=== PATIENT | female | born 1965 | race Caucasian/White ===

== ENCOUNTER → 2018-08-21 | Day surgery (SDC) | payer BC ==
[~2018-08-21] MED LIST: ALEVE; CELEXA10 MG; DIAZEPAM5 MG PO; EPHEDRINE SULFATE INJ 50 MG/10 ML SYR ONE; FENTANYL CITRATE/PF 100MCG/2 ML INJ ONE; HYOSCYAMINE 0.125 MG TAB ONE; LAMICTAL5 MG; LIDOCAINE HCL 2% LOCAL INJ 5 ML SDV VIAL INJ ONE; LOMOTRIGINE PO; MELOXICAM7.5 MG PO; MIDAZOLAM HCL 2 MG/2 ML VIAL ONE; PAXIL20 MG PO; PROPOFOL IV EMULSION 10 MG/ML 50 ML VIAL ONE; SEROQUEL25 MG PO; TRAZODONE HCL50 MG PO; Z.1.ALPRAZOLAM0.25 M PO; ZOLOFT50 MG
--- OUTSIDE RECORDS SUMMARY | 2018-08-21 09:09 | XMS REPORT ---
Author Author [facility] Address Unknown Phone Unavailable Care Team Providers Care Senior Technical Analyst Name Role Phone Unavailable Unavailable Payers Payer Name Policy Type Policy Number Effective Date Expiration Date Problems This patient has no known problems. Allergies, Adverse Reactions, Alerts Allergy Name Allergy Type Status Severity Reaction(s) Onset Date Inactive Date Treating Clinician Comments latex DA Active MO 2018-05-22 00:00:00 pecan nut DA Active SV 2018-05-22 00:00:00 NUTS DA Active SV 2018-05-22 00:00:00 Penicillins DA Active MO 2018-05-21 00:00:00 magnesium sulfate DA Active SV 2018-05-21 00:00:00 codeine DA Active MO 2018-05-21 00:00:00 latex DA Active U 2018-05-21 00:00:00 latex DA Active U 2016-12-05 00:00:00 NUTS DA Active U 2015-08-03 00:00:00 codeine DA Active MO 2015-08-02 00:00:00 Penicillins DA Active MO 2015-03-19 00:00:00 magnesium sulfate DA Active SV 2015-03-19 00:00:00 Medications This patient has no known medications. Results Test Description Test Time Test Comments Text Results Atomic Results Result Comments DIAG MAMM BILATERAL EFREN CAD DIGITAL 2018-01-22 14:50:29 - DIAG MAMM BILATERAL EFREN CAD DIGITALBILATERAL DIGITAL DIAGNOSTIC MAMMOGRAM 3D/2D WITH CAD: 01/22/2018CLINICAL: Followup to previous exam. Digital breast tomosynthesis was performed in addition to routine CC and MLO views. Current mammographic images were evaluated by either a [employer] M-Vu or a [employer] ImageChecker CAD (computer aided detection system). Comparison is made to exams dated 01/20/2017 mammogram, 04/02/2016 mammogram, 06/27/2015 mammogram, and [facility] The tissue of both breasts is heterogeneously dense. This may lower the sensitivity of mammography. No suspicious mass, architectural distortion, malignant type calcification, or lymph node abnormality detected. INCOMPLETE ASSESSMENT: ADDITIONAL IMAGING EVALUATION RECOMMENDEDUltrasound pending for additional evaluation. Resume annual screening mammography in one year. - BREAST ULTRASOUND BILATERALULTRASOUND OF BOTH BREASTS AND BOTH AXILLA: 01/22/2018Comparison is made to exams dated 01/20 mammogram, 04/02/2016 mammogram, 06/27/2015 mammogram, and [facility] Real-time ultrasound of both breasts and both axilla was performed. No abnormalities were seen sonographically in either axilla. Benign solid and cystic masses were seen. No evidence of malignancy was seen. Unchanged from the previous studies. Clinical breast exam was unremarkable.IMPRESSION: BENIGN There is no sonographic evidence of malignancy. Patient has been informed that she has areas of dense breast tissue that could make it difficult to find a small cancer. A screening mammogram and supplemental ultrasound for dense breast tissue is recommended in 1 year.Do Genao M.D. dm/:01/22/2018 14:50:29 Lye Boiler: Lopez Ocampo , [facility] BIRADS 1-2 Combo FU Letter Mammogram BI-RADS: 0 Indeterminate Ultrasound BI-RADS: 2 Benign BREAST ULTRASOUND BILATERAL 2018-01-22 14:50:29 - DIAG MAMM BILATERAL EFREN CAD DIGITALBILATERAL DIGITAL DIAGNOSTIC MAMMOGRAM 3D/2D WITH CAD: 01/22/2018CLINICAL: Followup to previous exam. Digital breast tomosynthesis was performed in addition to routine CC and MLO views. Current mammographic images were evaluated by either a [employer] M-Vu or a [employer] ImageChecker CAD (computer aided detection system). Comparison is made to exams dated 01/20/2017 mammogram, 04/02/2016 mammogram, 06/27/2015 mammogram, and 06/22/2014 [facility]. The tissue of both breasts is heterogeneously dense. This may lower the sensitivity of mammography. No suspicious mass, architectural distortion, malignant type calcification, or lymph node abnormality detected. INCOMPLETE ASSESSMENT: ADDITIONAL IMAGING EVALUATION RECOMMENDEDUltrasound pending for additional evaluation. Resume annual screening mammography in one year. - BREAST ULTRASOUND BILATERALULTRASOUND OF BOTH BREASTS AND BOTH AXILLA: 01/22/2018Comparison is made to exams dated 01/20 mammogram, 04/02/2016 mammogram, 06/27/2015 mammogram, and 06/22/2014 [facility]ogram - [facility]. Real-time ultrasound of both breasts and both axilla was performed. No abnormalities were seen sonographically in either axilla. Benign solid and cystic masses were seen. No evidence of malignancy was seen. Unchanged from the previous studies. Clinical breast exam was unremarkable.IMPRESSION: BENIGN There is no sonographic evidence of malignancy. Patient has been informed that she has areas of dense breast tissue that could make it difficult to find a small cancer. A screening mammogram and supplemental ultrasound for dense breast tissue is recommended in 1 year.Do Genao M.D. dm/:01/22/2018 14:50:29 Lye Boiler: Lopez CHAVEZ, [facility] BIRADS 1-2 Combo FU Letter Mammogram BI-RADS: 0 Indeterminate Ultrasound BI-RADS: 2 Benign
[2018-08-21 14:05] VITALS: BP 109/72
--- NOTE | 2018-08-21 20:25 | Operative Report ---
DATE OF PROCEDURE: 08/21/2018 SURGEON: Roberto King MD PROCEDURES: Colonoscopy with polypectomy and biopsies. INDICATIONS FOR COLONOSCOPY: Colorectal cancer screening. MEDICATIONS: The patient was done under MAC, please see anesthesiologist's note. DESCRIPTION OF PROCEDURE: With the patient in left lateral decubitus position, a flexible fiberoptic Olympus colonoscope was inserted into the rectum with ease and advanced all the way to the cecum. It was then withdrawn slowly; mucosa overlying the cecum, ascending colon, transverse colon appeared to be within normal limits. There was some mild patchy inflammatory changes noted in the distal descending and the sigmoid colon and random biopsies were obtained. Two minute polyps were hot biopsied from the sigmoid colon. The rectum grossly appeared to be within normal limits. The scope was then retroflexed into the distal rectum and small internal hemorrhoids were noted, none of which was actively bleeding. The scope was then straightened out, it was subsequently withdrawn, and the patient tolerated the procedure well. IMPRESSION: 1. Mild segmental colitis, left colon. 2. Sigmoid colon polyps x2 hot biopsied. 3. Internal hemorrhoids, none actively bleeding. PLAN: Follow up histology. Initiate high-fiber, low-fat diet. Initiate high-fiber supplement. The patient might benefit from a followup colonoscopy in 5 years. Severe with the by Dr. Mejia at the at send copy this report to my office as well as the doctor dated with Lee ricky thank you. Roberto King MD [facility]/[place] /[id number] cc: Lewis Gaviria
== END | disposition home or self-care (01) ==
LOC: OR 09:02
PROVIDERS: ATTEND Internal Medicine Gastroenterology
DX: Z12.11 Encounter for screening for malignant neoplasm of colon (principal); K63.5 Polyp of colon; K64.8 Other hemorrhoids; Z88.0 Allergy status to penicillin; Z88.8 Allergy status to other drugs, medicaments and biological substances; Z91.040 Latex allergy status; Z01.810 Encounter for preprocedural cardiovascular examination; Z87.891 Personal history of nicotine dependence
CPT/HCPCS: 45380; 45384; 93005; J2001; J2250; J2704; 45378; J3010

== ENCOUNTER 2018-11-22 02:42 | Observation (INO) | payer BC ==
[~2018-11-22] VITALS: Ht 167.6 cm; Wt 73.9 kg
[~2018-11-22 02:42] MED LIST changes: -EPHEDRINE SULFATE INJ 50 MG/10 ML SYR ONE; -FENTANYL CITRATE/PF 100MCG/2 ML INJ ONE; -HYOSCYAMINE 0.125 MG TAB ONE; -LIDOCAINE HCL 2% LOCAL INJ 5 ML SDV VIAL INJ ONE; -MIDAZOLAM HCL 2 MG/2 ML VIAL ONE; -PROPOFOL IV EMULSION 10 MG/ML 50 ML VIAL ONE
[2018-11-22] MEDS ORDERED: FAMOTIDINE 20 MG/2 ML VIAL IV STA (03:17)
[2018-11-22] MEDS ORDERED: ONDANSETRON HCL INJ 2MG/ML 2ML 2 MG/ML VIAL IV STA (03:17)
[2018-11-22] MEDS ORDERED: SODIUM CHLORIDE 0.9% 1000ML 1,000 ML IV STA (04:06)
[2018-11-22 04:11] LABS: BASOPHILS # (AUTO) 0.1 (0.0-0.1); BASOPHILS % 0.9 % (0.0-1.0); EOSINOPHILS # (AUTO) 0.3 (0.0-0.4); EOSINOPHILS % 4.3 % (0.0-6.0); HEMATOCRIT 40.3 % (34.2-44.1); HEMOGLOBIN 13.4 g/dL (12.0-16.0); LYMPHOCYTES # (AUTO) 3.3 (1.0-3.2); LYMPHOCYTES % 43.8 % (18.0-39.1); MEAN CORPUSCULAR HEMOGLOBIN 31.5 pg (28-32); MEAN CORPUSCULAR HGB CONC 33.3 g/dL (31-35); MEAN CORPUSCULAR VOLUME 94.8 fL (81-99); MONOCYTES # (AUTO) 0.5 (0.2-0.8); MONOCYTES % 6.4 % (4.4-11.3); NEUTROPHILS # (AUTO) 3.3 (2.1-6.9); NEUTROPHILS % 44.5 % (38.7-80.0); PLATELET COUNT 344 x10e3/uL (140-360); RED BLOOD COUNT 4.25 x10e6/uL (3.6-5.1); RED CELL DISTRIBUTION WIDTH 12.9 % (11.7-14.4)
[2018-11-22 04:23] LABS: BILIRUBIN,URINE NEGATIVE (NEGATIVE); CLARITY,URINE CLEAR (CLEAR); COLOR,URINE YELLOW (YELLOW); KETONES,URINE NEGATIVE (NEGATIVE); LEUKOCYTE ESTERASE ,URINE NEGATIVE (NEGATIVE); NITRITE,URINE NEGATIVE (NEGATIVE); PROTEIN,URINE DIPSTICK NEGATIVE (NEGATIVE); URINE UROBILINOGEN 0.2 mg/dL (0.2 - 1)
[2018-11-22] MEDS: MORPHINE SULFATE INJ 4 MG/ML INJ 1ML IV PRN ×2 (04:25→09:40)
[2018-11-22 04:27] LABS: AMYLASE 48 U/L (25-125); LIPASE 35 U/L (8-78)
[2018-11-22 04:29] LABS: ALANINE AMINOTRANSFERASE 23 IU/L (0-55); ALBUMIN 3.7 g/dL (3.5-5.0); ALBUMIN/GLOBULIN RATIO 1.1 (0.8-2.0); ALKALINE PHOSPHATASE 85 IU/L (40-150); ANION GAP 14.1 mmol/L (8-16); BLOOD UREA NITROGEN 8 mg/dL (7-26); BUN/CREATININE RATIO 9 (6-25); CALCIUM 9.3 mg/dL (8.4-10.2); CARBON DIOXIDE 26 mmol/L (22-29); CHLORIDE 105 mmol/L (98-107); CREATININE, SERUM 0.92 mg/dL (0.57-1.11); EST GLOMERULAR FILTRATION RATE > 60 ML/MIN (60-); GLUCOSE 98 mg/dL (74-118); POTASSIUM 4.1 mmol/L (3.5-5.1); SODIUM 141 mmol/L (136-145)
[2018-11-22] MEDS ORDERED: IOPAMIDOL 370 MG/ML 200 ML INFUS..BTL INJ ONE (05:04)
[2018-11-22] MEDS ORDERED: SODIUM CHLORIDE 0.9% 50ML 50 ML ONE (05:04)
[2018-11-22 05:10] LABS: BACTERIA,URINE FEW /HPF; EPITHELIAL CELLS,URINE FEW /LPF; WBC,URINE (MAN) 0-5 /HPF (0-5)
[2018-11-22] MEDS ORDERED: KETOROLAC TROMETHAMINE 30 MG/ML VIAL IV STA (05:28)
[2018-11-22] MEDS ORDERED: DICYCLOMINE HCL 20 MG/2 ML VIAL IM ONE (05:30)
--- NOTE | 2018-11-22 06:05 | Diagnostic Imaging Report ---
EXAM: CT Abdomen and Pelvis WITH contrast INDICATION: ^RUQ PAIN ^[id number] ^[id number] COMPARISON: CT dated 03/08/2013 TECHNIQUE: Abdomen and pelvis were scanned utilizing a multidetector helical scanner from the lung base to the pubic symphysis after administration of IV contrast. Coronal and sagittal reformations were obtained. Dose modulation, iterative reconstruction, and/or weight based adjustment of the mA/kV was utilized to reduce the radiation dose to as low as reasonably achievable. Routine protocol was performed. Scan was performed when during portal venous phase. IV CONTRAST: 100 mL of Isovue-370 ORAL CONTRAST: Water COMPLICATIONS: None RADIATION DOSE: Total DLP: 495.7 mGy*cm Estimated effective dose: (DLP x 0.015 x size factor) mSv CTDIvol has been reviewed. It is below the limits set by the Radiation Protocol Committee (RPC). FINDINGS: LINES and TUBES: None. LOWER THORAX: Unremarkable HEPATOBILIARY: No focal hepatic lesions. No biliary ductal dilation. GALLBLADDER: No radio-opaque stones or sludge. Mild wall thickening. SPLEEN: No splenomegaly. PANCREAS: No focal masses or ductal dilatation. ADRENALS: No adrenal nodules KIDNEYS/URETERS: Kidneys enhance symmetrically. No hydronephrosis. No cystic or solid mass lesions. No stones. GI TRACT: No abnormal distention, wall thickening, or evidence of bowel obstruction. Appendix is normal. PELVIC ORGANS/BLADDER: Unremarkable. Hysterectomy. LYMPH NODES: No lymphadenopathy. VESSELS: Unremarkable. PERITONEUM / RETROPERITONEUM: No free air or fluid. BONES: Unremarkable. SOFT TISSUES: Unremarkable. IMPRESSION: Mild gallbladder thickening. No radiopaque gallstone or pericholecystic fluid. Recommend correlation with right upper quadrant ultrasound. Signed by: Dr. Michael Diaz MD on 11/22/2018 6:02 AM
[2018-11-22] MEDS ORDERED: ONDANSETRON HCL INJ 2MG/ML 2ML 2 MG/ML VIAL IV PRN (06:15)
[2018-11-22] MEDS ORDERED: MORPHINE SULFATE INJ 4 MG/ML INJ 1ML IV PRN (06:15)
[2018-11-22] MEDS ORDERED: FENTANYL CITRATE/PF 100MCG/2 ML INJ ONE (06:59)
[2018-11-22] MEDS ORDERED: FENTANYL CITRATE/PF 100MCG/2 ML INJ IV ONE (07:00)
--- NOTE | 2018-11-22 07:20 | NUR ---
BEDSIDE REPORT COMPLETED
[2018-11-22] MEDS: DIAZEPAM 5 MG TAB PO SCH (08:45)
--- NOTE | 2018-11-22 08:46 | NUR ---
ULTRASOUND GALLBLADDER COMPLETED
--- NOTE | 2018-11-22 09:26 | Diagnostic Imaging Report ---
RIGHT UPPER QUADRANT ULTRASOUND TECHNIQUE: Ultrasound evaluation of the right upper quadrant abdomen. Color Doppler evaluation was utilized to supplement the evaluation. HISTORY: Abdominal pain, right upper quadrant pain, pain for one week COMPARISON: CT of the abdomen November 22, 2018. DISCUSSION: LIVER: No focal lesion identified. The liver measures 15 cm in length in the right mid-clavicular line. BILIARY: Multiple small shadowing stones. The provided measurements of the gallbladder wall thickening appears to include adjacent adipose tissue, the wall is more likely within the upper limits of normal to borderline thickened. No pericholecystic fluid. The sonographic Ramirez's sign is reported as positive. Common bile duct measures 0.4 cm. RIGHT KIDNEY: 9 cm in length. No hydronephrosis, solid mass, or cystic lesion identified. PANCREAS: Partially obscured by regional bowel gas, but no abnormality identified within this limitation. PERITONEUM: No free fluid. VASCULATURE: The visualized portions of the aorta and inferior vena cava appear unremarkable. The portal vein is patent with hepatopedal flow. IMPRESSION: Cholelithiasis with reported positive sonographic Ramirez's sign. Recommend correlation with physical exam and laboratory findings regarding the potential diagnosis of acute cholecystitis. Signed by: Dr. Stephen Mon D.O., M.M.M. on 11/22/2018 9:23 AM
[2018-11-22] MEDS ORDERED: ACETAMINOPHEN 325 MG TAB PO PRN (10:30)
[2018-11-22] MEDS ORDERED: HYDRALAZINE HCL 20 MG/ML VIAL IV PRN (10:30)
--- NOTE | 2018-11-22 11:00 | NUR ---
PATIENT SEEN BY Bang LUNSFORD
--- NOTE | 2018-11-22 11:28 | NUR ---
SPOKE WITH OSCAR LUNSFORD N.P. ON PHONE. WE ARE TO CANCEL HEPATOBILIARY TEST SHE HAS SPOKEN WITH AND EVALUATED PATIENT.
--- NOTE | 2018-11-22 11:30 | NUR ---
SPOKE WITH JL IN [facility] TO LET HER KNOW HEPATOBILIARY TEST IS TO BE CANCELED
[2018-11-22] MEDS: SODIUM CHLORIDE 0.9% 1000ML 1,000 ML IV SCH (11:45)
[2018-11-22 12:30] VITALS: BP 101/80
--- NOTE | 2018-11-22 12:30 | NUR ---
Received pt from ER at this time. Pt is being admitted for Right upper quadrant pain and possible gallstones. Pt is aox4 and able to verbalize needs. Pain to abdomen is 7/10 at this time. Skin is intact. Breaths are even and unlabored. Pt ambulatory with min assist. Pt is NPO and on IV fluids at 50ml/hr at this time for possible procedure.
[2018-11-22] MEDS: HYDROMORPHONE 1MG/1ML INJ IV PRN ×3 (12:43→23:53)
[2018-11-22 12:52] VITALS: BP 101/80
[2018-11-22 15:39] VITALS: BP 105/56
--- NOTE | 2018-11-22 16:00 | NUR ---
Dr. Soliz here to see pt and told pt she is to have a lap scott in am. Pt is to be NPO after midnight. Pt can have clear liquids at this time. Continues on IV fluids 50ml/hr.
[2018-11-22] MEDS: PROMETHAZINE 12.5MG/ NACL 0.9% 12.5 MG/50 ML BAG IV PRN ×2 (16:01→23:45)
[2018-11-22] MEDS: FAMOTIDINE 20 MG TAB PO SCH (16:01)
--- NOTE | 2018-11-22 19:25 | NUR ---
Patient visited in room during nursing rounds. Patient alert and oriented x3. Pt appear very sleepy at this time due to effects of Dilaudid recently given to patient. at bedside and plans to stay with patient tonight. Pt and aware of pt going for Lap Cholecystectomy tomorrow (11/23/18) to be done by Dr. Soliz. Pt on IVF (NS at 50ml/hr) and on clear liquid diet at this time. Call silverman within reach.
--- NOTE | 2018-11-22 19:28 | Consultation ---
DATE OF CONSULTATION: 11/22/2018 HISTORY OF PRESENT ILLNESS: The patient is a 53-year-old female, presents with complaints of right upper quadrant abdominal pain. She says she has had pains almost every day for last month and almost constant pain for the last week. Workup has revealed gallstones. There are no symptoms of jaundice. PAST MEDICAL HISTORY: Significant for bipolar disorder for which she takes Lamictal and diazepam. ALLERGIES: PENICILLIN, LATEX, LORAZEPAM, MAGNESIUM SULFATE, AND NUTS. PAST SURGICAL HISTORY: Previous surgery: She has had multiple orthopedic surgeries, two previous laparoscopies. FAMILY HISTORY: Noncontributory. SOCIAL HISTORY: The patient is a former smoker, does not smoke now. Does not drink alcohol. REVIEW OF SYSTEMS: As stated above. She has had no fever, no weight loss. PHYSICAL EXAMINATION: GENERAL: The patient is awake and alert, in no distress. VITAL SIGNS: Normal. HEENT: Unremarkable. Sclerae not icteric. NECK: Supple. No masses. LUNGS: Equal breath sounds are clear bilaterally. CARDIAC: Regular rate and rhythm with no murmur. ABDOMEN: Soft. There is mild epigastric tenderness. There is no mass. There is no distention. No organomegaly. EXTREMITIES: Have no edema. Pulses are palpable. NEUROLOGIC: Intact. LABORATORY TESTS: Liver function tests are normal. Amylase, lipase are normal. CBC is normal. ASSESSMENT: A 53-year-old female with symptoms of [id number] cholecystitis, cholelithiasis. She will benefit from cholecystectomy. PLAN: Plan is schedule for tomorrow. Procedure was explained to the patient including risks, benefits, and alternatives. She understands. She has had the opportunity to ask questions. She is aware of the possible need for open surgery. Thank you for asking me to see Ms. Gamble. MD JASWINDER Hollins/[place] /[id number]
[2018-11-22 20:00] VITALS: BP 135/98
[2018-11-23] VITALS (9 sets, daily range): BP systolic 99–127; BP diastolic 63–82
--- NOTE | 2018-11-23 03:05 | NUR ---
Nurse (Jose Armando) offered to draw AM labs but pt was sleeping and kindly requested not to bother the patient at this time and draw AM labs around 0500. Will check again later if ok to draw AM labs.
[2018-11-23 04:51] LABS: BASOPHILS # (AUTO) 0.1 (0.0-0.1); BASOPHILS % 0.7 % (0.0-1.0); EOSINOPHILS # (AUTO) 0.1 (0.0-0.4); EOSINOPHILS % 0.7 % (0.0-6.0); HEMATOCRIT 35.5 % (34.2-44.1); HEMOGLOBIN 11.7 g/dL (12.0-16.0); LYMPHOCYTES # (AUTO) 1.4 (1.0-3.2); LYMPHOCYTES % 15.7 % (18.0-39.1); MEAN CORPUSCULAR HEMOGLOBIN 31.7 pg (28-32); MEAN CORPUSCULAR VOLUME 96.2 fL (81-99); MONOCYTES # (AUTO) 0.5 (0.2-0.8); MONOCYTES % 5.5 % (4.4-11.3); NEUTROPHILS # (AUTO) 6.8 (2.1-6.9); NEUTROPHILS % 77.1 % (38.7-80.0); PLATELET COUNT 276 x10e3/uL (140-360); RED BLOOD COUNT 3.69 x10e6/uL (3.6-5.1)
--- NOTE | 2018-11-23 04:56 | NUR ---
Pt c/o 08/03 headache and with slight fever (temp = 100.8 F). Pt given PO tylenol 650mg with very little sip of water. Will continue to monitor pt.
[2018-11-23 05:10] LABS: BLOOD UREA NITROGEN 5 mg/dL (7-26); BUN/CREATININE RATIO 6 (6-25); CALCIUM 8.3 mg/dL (8.4-10.2); CARBON DIOXIDE 23 mmol/L (22-29); CHLORIDE 106 mmol/L (98-107); CREATININE, SERUM 0.89 mg/dL (0.57-1.11); EST GLOMERULAR FILTRATION RATE > 60 ML/MIN (60-); GLUCOSE 115 mg/dL (74-118); SODIUM 139 mmol/L (136-145)
[2018-11-23] MEDS: PROMETHAZINE 12.5MG/ NACL 0.9% 12.5 MG/50 ML BAG IV PRN ×2 (06:30→20:49)
[2018-11-23] MEDS: HYDROMORPHONE 1MG/1ML INJ IV PRN ×3 (06:30→18:58)
[2018-11-23] MEDS: FAMOTIDINE 20 MG TAB PO SCH ×2 (06:46→16:48)
--- NOTE | 2018-11-23 07:22 | NUR ---
Received patient lying in bed with eyes closed. Respiration even and unlabored without SOB. Family member at bedside. Call light in reach.
[2018-11-23] MEDS: DIAZEPAM 5 MG TAB PO SCH (09:00)
[2018-11-23] MEDS: SODIUM CHLORIDE 0.9% 1000ML 1,000 ML IV SCH ×2 (10:39→14:17)
[2018-11-23] MEDS ORDERED: BUPIVACAINE HCL 0.5% INJ 30 ML VIAL INJ ONE (12:34)
--- NOTE | 2018-11-23 12:56 | NUR ---
Patient is transported to OR at this time.
[2018-11-23] MEDS ORDERED: LEVOFLOXACIN 500MG/D5W 100ML 100 ML IV ONE (14:01)
[2018-11-23] MEDS ORDERED: TRAMADOL/APAP 37.5MG-325MG TAB PO PRN (14:30)
--- NOTE | 2018-11-23 14:59 | NUR ---
Patient is transported back to room from OR. No bleeding on puncture sites noted. Respiration even and unlabored without SOB. Denies pain at this time. Call light in reach.
[2018-11-23] MEDS: ONDANSETRON HCL INJ 2MG/ML 2ML 2 MG/ML VIAL IV PRN (17:56)
[2018-11-23] MEDS ORDERED: SEVOFLURANE INHAL SOLN 250 ML PEN BTL ONE (17:58)
[2018-11-23] MEDS ORDERED: NEOSTIGMINE 5 MG/5ML SYR ONE (17:58)
[2018-11-23] MEDS ORDERED: ROCURONIUM BROMIDE 10 MG/ML 5ML VIAL ONE (17:58)
[2018-11-23] MEDS ORDERED: KETOROLAC TROMETHAMINE 30 MG/ML VIAL ONE (17:58)
[2018-11-23] MEDS ORDERED: LIDOCAINE HCL 2% LOCAL INJ 5 ML SDV VIAL INJ ONE (17:58)
[2018-11-23] MEDS ORDERED: ONDANSETRON HCL INJ 2MG/ML 2ML 2 MG/ML VIAL ONE (17:58)
[2018-11-23] MEDS ORDERED: PROPOFOL IV EMULSION 10 MG/ML 20 ML VIAL ONE (17:58)
[2018-11-23] MEDS ORDERED: GLYCOPYRROLATE INJ 1MG/ 5 ML SYR ONE (17:58)
[2018-11-23] MEDS ORDERED: DEXAMETHASONE SOD PHOS INJ 4 MG/ML VIAL ONE (17:58)
[2018-11-23] MEDS ORDERED: FENTANYL CITRATE/PF 100MCG/2 ML INJ ONE (18:14)
[2018-11-23] MEDS ORDERED: MIDAZOLAM HCL 2 MG/2 ML VIAL ONE (18:14)
--- NOTE | 2018-11-23 19:27 | NUR ---
Report given to physical director. Patient lying in bed with eyes closed. Family member at bedside. Bed alarm set. Respiration even and unlabored. Call light in reach.
--- NOTE | 2018-11-23 19:56 | NUR ---
PT IS RESTING IN BED WITH FAMILY AT BEDSIDE. RESPIRATION IS EVEN AND UNLABORED, NO DISTRESS NOTED. BED IN THE LOWEST POSITION, LOCKED, BED ALARM ON, AND CALL LIGHT WITHIN REACH. WILL CONTINUE TO MONITOR.
--- NOTE | 2018-11-23 20:56 | NUR ---
PT IS COMPLAINING THAT SHE IS FELLING ANXIOUS. SPOKE TO FAINA ARREOLA NP AND PER FAINA VALIUM 5MG PO ONE TIME DOSE. WILL CONTINUE TO MONITOR.
[2018-11-23] MEDS ORDERED: DIAZEPAM 5 MG TAB PO ONE (21:00)
[2018-11-24] MEDS: ONDANSETRON HCL INJ 2MG/ML 2ML 2 MG/ML VIAL IV PRN ×2 (02:03→07:20)
[2018-11-24] MEDS: HYDROMORPHONE 1MG/1ML INJ IV PRN ×2 (02:03→07:20)
[2018-11-24] MEDS: SODIUM CHLORIDE 0.9% 1000ML 1,000 ML IV SCH ×2 (03:02→10:17)
[2018-11-24 03:32] LABS: BASOPHILS # (AUTO) 0.1 (0.0-0.1); BASOPHILS % 0.5 % (0.0-1.0); EOSINOPHILS # (AUTO) 0.1 (0.0-0.4); EOSINOPHILS % 0.8 % (0.0-6.0); HEMATOCRIT 37.6 % (34.2-44.1); HEMOGLOBIN 11.9 g/dL (12.0-16.0); LYMPHOCYTES % 9.2 % (18.0-39.1); MEAN CORPUSCULAR HEMOGLOBIN 31.4 pg (28-32); MEAN CORPUSCULAR HGB CONC 31.6 g/dL (31-35); MONOCYTES # (AUTO) 0.6 (0.2-0.8); NEUTROPHILS # (AUTO) 9.4 (2.1-6.9); NEUTROPHILS % 84.1 % (38.7-80.0); PLATELET COUNT 260 x10e3/uL (140-360); RED BLOOD COUNT 3.79 x10e6/uL (3.6-5.1); RED CELL DISTRIBUTION WIDTH 12.7 % (11.7-14.4)
[2018-11-24 03:35] LABS: MEAN CORPUSCULAR VOLUME 99.2 fL (81-99)
[2018-11-24 03:49] LABS: ANION GAP 13.6 mmol/L (8-16); BLOOD UREA NITROGEN 5 mg/dL (7-26); BUN/CREATININE RATIO 6 (6-25); CALCIUM 8.5 mg/dL (8.4-10.2); CARBON DIOXIDE 25 mmol/L (22-29); CHLORIDE 107 mmol/L (98-107); CREATININE, SERUM 0.81 mg/dL (0.57-1.11); EST GLOMERULAR FILTRATION RATE > 60 ML/MIN (60-); GLUCOSE 135 mg/dL (74-118); POTASSIUM 4.6 mmol/L (3.5-5.1); SODIUM 141 mmol/L (136-145)
[2018-11-24] MEDS: PROMETHAZINE 12.5MG/ NACL 0.9% 12.5 MG/50 ML BAG IV PRN (04:35)
[2018-11-24 05:49] VITALS: BP 101/63
[2018-11-24 08:00] VITALS: BP 108/70
[2018-11-24] MEDS: FAMOTIDINE 20 MG TAB PO SCH (08:28)
[2018-11-24] MEDS: DIAZEPAM 5 MG TAB PO SCH (08:28)
[2018-11-24 08:38] VITALS: BP 101/63
[2018-11-24] MEDS ORDERED: LAMICTAL100 MG PO (11:44)
--- NOTE | 2018-11-24 12:28 | NUR ---
ASSESSMENT: Spiritual Distress Pt feels marginalized. Pt states she feels that she isn't being listened to. Pt expressed emotions thru words and tears. Pt's at bedside. Intervention: Provided unhurried empathic listening. Facilitated storytelling. Provided business card and information on how to reach second language tutor, if needed. Provided prayer. Outcome: Will follow as able. Pt & expressed appreciation for visit and support. LANI VANEGAS Licensed Marriage And Family Therapist Spiritual Care Department O: [phone] Pager: [phone] ([phone] number calling from)
[2018-11-24] MEDS ORDERED: ULTRACET TABLE1 EACH PO (12:39)
[2018-11-24] MEDS ORDERED: ZOFRAN4 MG PO (12:40)
[2018-11-24 12:42] VITALS: BP 115/78
--- NOTE | 2018-11-25 07:22 | Discharge Summary ---
ADMISSION DIAGNOSES: Cholelithiasis, bipolar, anxiety, migraines. DISCHARGE DIAGNOSES: Cholelithiasis, bipolar, anxiety, migraines, status post laparoscopic cholecystectomy. HISTORY: The patient has a history of bipolar, anxiety, and migraines. SURGICAL HISTORY: Left shoulder surgery x2, right shoulder surgery, bilateral knee surgery x2. FAMILY HISTORY: The patient's brother and sister had cancer. SOCIAL HISTORY: Occasional alcohol use. HOSPITAL COURSE: A 53-year-old female, complains of sharp intermittent right upper quadrant abdominal pain over the last 6 days. The pain radiates to her back and right shoulder. She has associated nausea and vomiting. Symptoms worsened with eating. On admission, the patient had a CT of the abdomen, which is negative. An ultrasound of the gallbladder, which showed cholelithiasis with reported positive sonographic Ramirez sign. Surgery was consulted and the patient had a laparoscopic cholecystectomy on 11/23. The patient's diet was advanced and pain is controlled. She will discharge home with new prescriptions for pain and nausea medicine. The patient understands discharge instructions and agrees to plan. Vital signs stable, the patient afebrile. Dictated by Rebekah Rivera NP MD RAKEL Gomez/[place] /[id number]
== END 2018-11-24 13:01 | disposition home or self-care (01) ==
LOC: ER 02:42 → ERHOLD 06:26 → MED/SURG3 12:32
PROVIDERS: ADMIT Internal Medicine; ATTEND Internal Medicine
DX: K80.10 Calculus of gallbladder with chronic cholecystitis without obstruction (principal); F31.9 Bipolar disorder, unspecified; F41.9 Anxiety disorder, unspecified; G43.909 Migraine, unspecified, not intractable, without status migrainosus
CPT/HCPCS: 36415 ×3; 47562; 74177; 76705; 80048 ×2; 80053; 81001; 82150; 83690 ×2; 85025 ×3; 88304; 99284; G0378 ×3; J0500; J1100; J1170 ×3; J1885 ×2; J1956; J2001; J2250; J2270; J2405 ×3; J2550 ×3; J2704; J3010 ×2; J3490; J7030 ×3; Q9967